=== PATIENT | male | born 1955 | race Caucasian/White ===

== ENCOUNTER 2019-09-26 11:46 | Inpatient (IN) | payer MEDICARE, OTHER ==
[~2019-09-26] VITALS: Ht 175.3 cm; Wt 105.0 kg
[2019-10-24] VITALS (11 sets, daily range): BP systolic 101–169; BP diastolic 58–74; PULSE 74–87; TEMP 97.9–98.1
[2019-10-24] MEDS ORDERED: HYDRODIURIL50 MG PO (07:32)
[2019-10-24] MEDS ORDERED: K-DUR20 MEQ PO (07:33)
[2019-10-24] MEDS ORDERED: PEPCID AC 10MG10 MG PO (07:34)
[2019-10-24] MEDS ORDERED: B COMPLEX #11 TA1 PO (07:34)
[2019-10-24 14:24] LABS: HEMATOCRIT 38.3 % (42.0-52.0); HEMOGLOBIN 13.3 g/dl (13.5-18.0)
--- NOTE | 2019-10-24 15:00 | NUR ---
Patient to room 350 from PACU, see assessment. Patient drowsy, A/Ox4. Midline incision dressing with scant amount of drainage noted. Glenys drain to LUQ to LIS, scant amount of bloody drainage noted. Bowel sounds audible x4 quads. No flatus. Pope catheter patent, draining clear bloody urine. Epidural catheter intact to mid back, scant drainage noted. PCEA settings verified against MAR. No numbness or tingling noted to BLE, pulses palpable. Post op exercises, PCEA use reviewed with patient. No c/o at this time.
--- NOTE | 2019-10-24 23:24 | NUR ---
Patient output has not improved, notified Dr. Riggs. New order of 10mg IV lasix.
[2019-10-25] VITALS (7 sets, daily range): BP systolic 104–127; BP diastolic 52–67; PULSE 71–91; TEMP 97.6–98.4
--- NOTE | 2019-10-25 01:41 | NUR ---
Patient alert and oriented, resting in bed. Patient has epidural for pain managment, which patient has reported is working. Patient has a crump catheter at this time output is good, but was minimal in the beginning of shift. Urine currently peach in color without clots. Patient has a neil drain, no new output since beginning of shift. Patient has been able to rest in bed with no complaints of nausea. Antibiotics given as ordered.
[2019-10-25 07:37] LABS: BASO % 0.1 % (0.0-2.0); GRAN # 7.4 (1.4-6.5); GRAN % 81.2 % (42.2-75.2); LYMPH # 1.1 (1.2-3.4); LYMPH % 11.7 % (20.0-51.0); MEAN CELL VOLUME 87 fl (80.0-100.0); MEAN CORPUSCULAR HGB CONC 34 g/dl (33.0-37.0); MONO # 0.6 (0.1-0.6); MONO % 6.6 % (1.7-9.3); PLATELET COUNT 184 K/mm3 (130-400); REDCELL DISTRIBUTION WIDTH-CV 13.7 % (11.5-14.5)
[2019-10-25 07:53] LABS: CALCIUM 7.9 mg/dL (8.4-10.2); CREATININE, serum 0.85 (0.66-1.25); POTASSIUM 4.1 mmol/L (3.4-5.0)
[2019-10-25 07:55] LABS: HEMATOCRIT 31.2 % (42.0-52.0); HEMOGLOBIN 10.7 g/dl (13.5-18.0); MEAN CORPUSCULAR HEMOGLOBIN 30 pg (27.0-31.0)
--- NOTE | 2019-10-25 09:30 | NUR ---
Patient alert and oriented, answers questions appropriately. See assessment. Abdomen soft, rounded. Bowel sounds hyperactive x4 quads. Midline incision with dressing clean, dry and intact. Scant amount of drainage noted on midline dressing. Glenys drain to LUQ with scant amount of drainage noted on dressing. Glenys drain connected to LIS, moderate amount of drainage noted. Pope catheter in place, patent and draining clear yellow urine. Epidural catheter in place to low back, scant amount of drainage noted. No c/o numbness or tingling to BLE, neuros intact. PCEA settings verified agaisnt the MAR. Post op exercises reviewed with patient. No c/o at this time.
--- NOTE | 2019-10-25 12:10 | NUR ---
First visit from the fruit dryer. No needs right now.
--- NOTE | 2019-10-25 15:15 | NUR ---
Tailer Off met with patient to discuss discharge planning. Patient lives alone in [place] and sees Dr. Kaiser Infante for primary care. Patient obtains medications from [facility] in [place]. Patient does not use any DME and reports independence with ADLS. Patient has [facility] located in chart which designates Beatriz (ph#[phone]). Patient plans to return home upon discharge with [facility] providing transportation. No needs identified at this time.
--- NOTE | 2019-10-25 18:35 | NUR ---
Dr Riggs here to see patient.
--- NOTE | 2019-10-25 18:50 | NUR ---
Glenys drain cut and bagged at this time.
--- NOTE | 2019-10-25 22:00 | NUR ---
Pt. sitting up in bed at this time. Pt. is A&OX3, assessment complete. INT to lt. ac patent. IV fluids infusing to lt. wrist IV. Pt. Glenys drain to DD, bloody drainage noted. Epidural intact. Pt. reports good pain management. Pope catheter to DD, clear yellow urine noted. Pt. denies further needs, call light within reach.
[2019-10-26 04:05] VITALS: BP 111/57; PULSE 65; TEMP 97.4
--- NOTE | 2019-10-26 07:13 | NUR ---
Epidural stopped and turned off this am. Gave 1 percocet.
[2019-10-26 08:09] VITALS: BP 104/63; PULSE 86; TEMP 98.1
[2019-10-26 12:42] VITALS: BP 121/62; PULSE 82; TEMP 98
[2019-10-26 16:06] VITALS: BP 129/68; PULSE 77; TEMP 98.7
--- NOTE | 2019-10-26 18:00 | NUR ---
Patient has been doing well today. He has been up in the room several times and walking in the hallways. He is passing flatus. No bowel movments yet. Urine is clearer than this morning. He is tolerating regular diet without nausea. Minimal complaints of pain. Epidural was discontinued today. IVF's stopped as well. No other changes at this time. Call light within reach. Patient is hoping to discharge tomorrow.
[2019-10-26 20:32] VITALS: BP 137/56; PULSE 80; TEMP 97.5
--- NOTE | 2019-10-26 21:10 | NUR ---
Pt. sitting up in bed at this time. Pt. is A&OX3, assessment complete. INT to lt. wrist patent. Midline incision, tammy intact, neil drain to lt. abd. with ostomy drainage bag. Minimal drainage noted. Drainage bag changed at this time. Pope catheter to DD, clear, yellow urine noted, catheter care complete at this time. Pt. given a clean gown at this time also. Pt. denies pain or other needs, call light within reach.
[2019-10-27 04:26] VITALS: BP 108/62; PULSE 66; TEMP 98.1
[2019-10-27 07:49] VITALS: BP 116/70; PULSE 77; TEMP 98.2
[2019-10-27 11:38] VITALS: BP 114/52; PULSE 70; TEMP 98.5
--- NOTE | 2019-10-27 12:15 | NUR ---
Discontinued Glenys drains. Patient tolerated well. Gauze 4x4's and tegaderm placed to drain site. Discussed when to remove dressing. Explained the discharge plan. No qustions verbalized. Patient denies pain or nausea at this time. No other changes at this time. Call light within reach.
--- NOTE | 2019-10-27 15:50 | NUR ---
Patient is discharging home. Discharge instructions discussed with patient. No questions verbalized. INT's discontinued. Instructed patient on how to change catheter bags. Explained how to care for his catheter at home. Patient has a follow up already scheduled. All belongings packed up and sent with patient. Copies of discharge instructions sent with patient. Patient walked out via wheel chair by Miri RICHARDSON.
== END 2019-10-27 15:50 | disposition home or self-care (01) | DRG 708 ==
LOC: INPTSU 10-24 06:47 → SURG 10-24 09:00
PROVIDERS: Surgery; ADMIT Urology
PROC: 0VT00ZZ Resection of Prostate, Open Approach (ICD-10-PCS; principal; 2019-10-24 09:00)
PROC: 0WJJ0ZZ Inspection of Pelvic Cavity, Open Approach (ICD-10-PCS; 2019-10-24 09:00)
DX: C61 Malignant neoplasm of prostate (principal); K40.90 Unilateral inguinal hernia, without obstruction or gangrene, not specified as recurrent; K21.9 Gastro-esophageal reflux disease without esophagitis; I10 Essential (primary) hypertension; Z87.442 Personal history of urinary calculi; Q53.9 Undescended testicle, unspecified
CPT/HCPCS: A9284; J0690; J1100; J1940; J2250; J2405; J2704; J2795; J3010; J7030; J7050; J7120

== ENCOUNTER → 2019-11-13 | Outpatient (CLI) | payer MEDICARE, OTHER ==
[~2019-11-13] MED LIST: B COMPLEX #11 TA1 PO; HYDRODIURIL50 MG PO; K-DUR20 MEQ PO; PEPCID AC 10MG10 MG PO
== END ==
LOC: COL.RAD 09:58
DX: C61 Malignant neoplasm of prostate (principal); N39.498 Other specified urinary incontinence; Z90.79 Acquired absence of other genital organ(s)
CPT/HCPCS: Q9967

== ENCOUNTER → 2019-12-12 | Outpatient (CLI) | payer MEDICARE, OTHER | LOC: COL.RAD 09:36 | DX: C61 Malignant neoplasm of prostate (principal); Z96.89 Presence of other specified functional implants | CPT/HCPCS: Q9967 ==

== ENCOUNTER 2020-06-12 13:58 | Day surgery (SDC) | payer MEDICARE, OTHER ==
[2020-06-12] VITALS (10 sets, daily range): BP systolic 91–133; BP diastolic 59–84; PULSE 52–99; TEMP 97.8–98
[~2020-06-12] VITALS: Ht 175.3 cm; Wt 104.8 kg
--- NOTE | 2020-06-12 19:00 | NUR ---
To room 327 via bed from PACU. Orientec to room/policy. Assessment complete. Post op vitals intitated and WNL. IV to left forearm flushes without difficulty. Pope cath with clear yellow urine. Plan of care discussed for this shift to include Meds/hospitalist consult/calling for questions concerns. Verbalizes understanding/denies questions/concerns. Call light in reach. Will monitor.
[2020-06-12 20:06] LABS: BASO % 0.3 % (0.0-2.0); EOS # 0.1 (0.0-0.7); EOS % 0.6 % (0-4.0); GRAN # 10.2 (1.4-6.5); GRAN % 86.5 % (42.2-75.2); HEMATOCRIT 48.2 % (42.0-52.0); HEMOGLOBIN 15.9 g/dl (13.5-18.0); LYMPH # 1.3 (1.2-3.4); LYMPH % 10.6 % (20.0-51.0); MEAN CELL VOLUME 83 fl (80.0-100.0); MEAN CORPUSCULAR HEMOGLOBIN 28 pg (27.0-31.0); MEAN CORPUSCULAR HGB CONC 33 g/dl (33.0-37.0); MEAN PLATELET VOLUME 9.1 fl (7.4-10.4); MONO # 0.2 (0.1-0.6); MONO % 1.7 % (1.7-9.3); PLATELET COUNT 235 K/mm3 (130-400); RED BLOOD COUNT 5.79 M/mm3 (4.20-5.60); REDCELL DISTRIBUTION WIDTH-CV 15.5 % (11.5-14.5)
[2020-06-12 20:19] LABS: ALANINE AMINOTRANSFERASE 19 U/L (4-49); ALBUMIN 3.9 gm/dL (3.5-5.0); ALKALINE PHOSPHATASE 68 U/L (50-136); ANION GAP 9 mmol/L (7-16); AST,SGOT 24 U/L (15-37); BILIRUBIN,TOTAL 0.9 mg/dL (0.0-1.0); BLOOD UREA NITROGEN 15 mg/dL (9-20); CALCIUM 9.1 mg/dL (8.4-10.2); CARBON DIOXIDE 27 mmol/L (22-30); CHLORIDE 104 mmol/L (98-107); CREATININE, serum 0.98 (0.66-1.25); GLUCOSE 101 mg/dL (74-106); MAGNESIUM 2.1 mg/dL (1.6-2.3); POTASSIUM 3.9 mmol/L (3.4-5.0); SODIUM 139 mmol/L (137-145); TOTAL PROTEIN 6.9 gm/dL (6.4-8.2)
[2020-06-12 20:30] LABS: TROPONIN-I < 0.012 ng/mL (0.000-0.035)
--- NOTE | 2020-06-12 23:30 | NUR ---
Post op vitals complete and WNL. Denies pain/nausea/shortness of breath. Denies current needs. Call light in reach. Will monitor.
[2020-06-13 03:59] VITALS: BP 107/64; PULSE 89; TEMP 98.1
--- NOTE | 2020-06-13 05:53 | NUR ---
Niko Pino at this time. Noted to have yellow urine with sediment present. Encouraged to drink fluids and to call if needing to void. Verbalizes understanding. Call light in reach. Will monitor.
--- NOTE | 2020-06-13 06:33 | NUR ---
Dr. Cabrera notified of [facility] for cardiology consult. Requested to put under Dr. Kamara. Done at this time. Will monitor.
--- NOTE | 2020-06-13 07:10 | NUR ---
Lying in bed with eyes open. Alert and oriented x4. Denies pain at this time. Has not urinated at this time. Discuss with the patient that he may have burning with urination and some blood in his urine. Patient assisted into bathroom at this time. Gait steady. Patient would like to sit to see if he is able to have bowel movement. Patient able to transfer self back to bed when done.
[2020-06-13 07:33] VITALS: BP 108/68; PULSE 93; TEMP 97.8
--- NOTE | 2020-06-13 08:19 | NUR ---
Patient lying in bed. Was able to urinate and had small BM. Has been able to pass more gas. Has ordered a breakfast tray. Denies additional needs at this time.
--- NOTE | 2020-06-13 11:14 | NUR ---
Sitting up in bed watching TV. No pain. Says that he has continued to be able to urinate without difficulty. Patient says that they just completed the echo a little bit ago. Denies needs at this time.
[2020-06-13 11:37] VITALS: BP 95/68; PULSE 113; TEMP 98.5
--- NOTE | 2020-06-13 11:46 | NUR ---
IV fluids disconnected at this time as they were placed on hold by Dr. Rice.
--- NOTE | 2020-06-13 14:16 | NUR ---
Plan to return home, independently. Patient reports that he is from [place]. Patient reports that his PCP is Dr. Hoang at [facility]. Prefers [facility] for RX. Patient denies having any DME use and has his own transportation. Reports specialist care Dr. Riggs. Patient reports shared JAKE Esquivel and Criselda . Educated on supports. Will continue to follow care.
--- NOTE | 2020-06-13 15:19 | NUR ---
Sitting up in bed with eyes open watching videos on his phone. Denies pain. Says that he has been urinating without difficulty. Has been up in room. Explain that he can ambulate in halls just make sure he has on mask, socks, and he stays on our unit. Patient verbalizes understanding and denies additional needs at this time.
[2020-06-13 15:39] VITALS: BP 114/72; PULSE 92; TEMP 98.2
--- NOTE | 2020-06-13 17:02 | NUR ---
Patient sitting up in bed, just ordered dinner. Discussed Coreg with the patient. Patient is also going to clarify with Dr. Kamara tomorrow if he should stop the HCTZ all together as he was taking it for kidney stones not BP. Patient understands that they may want him to stop it for awhile until they are able to see how the Coreg works but will clarify with Dr. Kamara. Patient denies additional needs at this time.
--- NOTE | 2020-06-13 17:28 | NUR ---
Patient ambulating in halls. HR on tele irregular and gets into the 140's. Patient says that he feels fine.
--- NOTE | 2020-06-13 18:09 | NUR ---
Sitting up in bed on phone. Ate 100% of dinner. HR per tele 90-110's, irregular. Patient says that he is doing good and denies additional needs.
[2020-06-13 20:11] VITALS: BP 107/74; PULSE 55; TEMP 98
--- NOTE | 2020-06-13 21:00 | NUR ---
Pt. sitting up in bed at this time. Pt. is A&OX3, assessment complete. INT to lt. forearm patent. Pt. ambulated in the [place] independently this evening. Pt. denies pain or other needs, call light within reach.
[2020-06-14 04:33] VITALS: BP 110/80; PULSE 84; TEMP 97.6
[2020-06-14 07:59] VITALS: BP 129/87; PULSE 91; TEMP 97.5
[2020-06-14] MEDS ORDERED: ELIQUIS 5MG PO (08:27)
[2020-06-14] MEDS ORDERED: COREG 3.123.125 MG/T PO (08:27)
--- NOTE | 2020-06-14 08:35 | NUR ---
Patient resting in bed. Hopeful discharge home today. He tolerated breakfast. He is thankful for being able to void easy, denies blood in urine. Int. Vss, tele on. Heart rate control, but continues to be irregular. Hospitalist rounded. K+ stop due to no longer being on hctz
--- NOTE | 2020-06-14 10:40 | NUR ---
Hospitalist & urology have rounded. Discharge orders obtained. Patient ready to get home. A friend picking up his new scripts at [place] [facility] of choice so he will have to take tonight. We reviewed med lists including new scripts & stopping prior home meds. Patient to call PCP in am for a follow up. He has a appt for urology. Int DC. He dressed. Patiemtn ambulated out with all belongings. Patient driving himself home & that was okay with .
== END 2020-06-14 10:44 | disposition home or self-care (01) ==
LOC: SDCO 13:58 → JCC 19:00 → SDCO 06-14 10:44
PROVIDERS: Nurse Practitioner Family
DX: N32.0 Bladder-neck obstruction (principal); N21.0 Calculus in bladder; I48.0 Paroxysmal atrial fibrillation; I10 Essential (primary) hypertension; I08.1 Rheumatic disorders of both mitral and tricuspid valves; Z90.79 Acquired absence of other genital organ(s); Z91.011 Allergy to milk products; Z91.018 Allergy to other foods; Z85.46 Personal history of malignant neoplasm of prostate
CPT/HCPCS: OP; 99223; 99232-AI; A4215; J0690; J1100; J1650; J2405; J2704; J3010; J3301; J7030

== ENCOUNTER 2021-06-11 15:26 | Day surgery (SDC) | payer MEDICARE, OTHER ==
[~2021-06-11 15:26] MED LIST changes: +COREG 3.123.125 MG/T PO; +ELIQUIS 5MG PO
[2021-06-11] MEDS ORDERED: XARELTO20 MG PO (15:55)
[2021-06-11] MEDS ORDERED: LIPITOR20 MG PO (15:55)
[2021-06-11] MEDS ORDERED: TOPROL XL 50MG50 MG PO (15:56)
[2021-06-11] MEDS ORDERED: BETAPACE 120MG120 MG PO (15:56)
[2021-06-11] MEDS ORDERED: ASPIRIN E.C. 8181 MG PO (15:56)
--- NOTE | 2021-06-11 18:32 | NUR ---
PT TO ROOM 324 PER BED WITH REPORT FROM FORTUNATO RICHARDSON @[id number]. PT IS A/O X4, LOPEZ CATHETER TO DD. VSS, CLOUDY YELLOW URINE IN LOPEZ BAG.
[2021-06-11 19:00] VITALS: BP 130/73; PULSE 59
[2021-06-11 19:15] VITALS: BP 134/70; PULSE 58
[2021-06-11 19:30] VITALS: BP 148/70; PULSE 59
[2021-06-11 19:45] VITALS: BP 135/70; PULSE 57; TEMP 98.4
--- NOTE | 2021-06-11 19:58 | NUR ---
PATIENT TO ROOM 324 AT SHIFT CHANGE. ALERT AND ORIENTED. VSS. TOLERATED FOOD AND PO FLUIDS. AMBULATED WITHOUT ISSUE. LOPEZ TO DD WITH PINK CLEAR URINE DRAINING. PATIENT TEACHING ON HOW TO USE LEG BAG AND HOW TO DRAIN CATHETER. DISCHARGE TEACHING COMPLETED. IV TO R WRIST DC'D, BANDAID APPLIED. DC'D AT 1999 VIA WHEELCHAIR TO HOME WITH FAMILY.
== END 2021-06-11 20:13 | disposition home or self-care (01) ==
LOC: SDCO 15:26 → SURG 18:22 → SDCO 20:13
DX: R39.198 Other difficulties with micturition (principal); I10 Essential (primary) hypertension; Z95.810 Presence of automatic (implantable) cardiac defibrillator; I48.91 Unspecified atrial fibrillation; Z79.82 Long term (current) use of aspirin; Z79.01 Long term (current) use of anticoagulants; Z85.46 Personal history of malignant neoplasm of prostate; Z90.79 Acquired absence of other genital organ(s); Z92.3 Personal history of irradiation
CPT/HCPCS: OP; C1769; J0690; J2405; J2704; J3010; J3301; J7120